=== PATIENT | female | born 1965 | race Caucasian/White ===

== ENCOUNTER 2019-03-01 19:51 | Emergency (ER) | payer OTHER ==
[2019-03-01] MEDS ORDERED: Acetaminophen 325 MG TAB ONE (22:04)
--- NOTE | 2019-03-01 22:26 | RAD ---
Left humerus 2 views HISTORY: Fall. Arm injury. FINDINGS: Humeral shaft is intact. There is little rotation from the first view to the second, so krista t the distal humerus is incompletely evaluated. No displaced fractures are apparent. IMPRESSION: No acute osseous abnormalities are demonstrated.
--- NOTE | 2019-03-01 22:27 | RAD ---
Left elbow 4 views HISTORY: Elbow injury. FINDINGS: Radiocapitellar alignment is maintained. No acute fracture or dislocation are apparent. Lat eral view is rotated, so that evaluation of the distal humeral fat pads is not possible. IMPRESSION: No acute osseous abnormalities are demonstrated.
--- NOTE | 2019-03-01 22:28 | RAD ---
Chest one view HISTORY: Fall. Chest injury. FINDINGS: Cardiac silhouette is magnified by projection. Pulmonary vasculature is unremarkable. Media stinum is midline with aortic calcification. Linear atelectasis over the left lateral lung base. No lobar consolidation or evidence of pneumothorax. pvc monitor leads overlie the chest. IMPRESSION: Atherosclerosis. No active cardiopulmonary abnormalities are otherwise demonstrated.
--- NOTE | 2019-03-01 22:29 | RAD ---
Left shoulder 3 views HISTORY: Fall. Shoulder injury. FINDINGS: Acromioclavicular and glenohumeral alignment are maintained. Chronic appearing remodeling o f the distal clavicle. No acute fracture, dislocation, or aggressive osseous erosions. IMPRESSION: No acute osseous abnormalities are demonstrated.
== END 2019-03-02 | disposition home or self-care (01) ==
LOC: ERS 19:51 → EDBD 19:51 → ERS 03-02
DX: M25.512 Pain in left shoulder (principal); M54.2 Cervicalgia; M25.531 Pain in right wrist; F17.210 Nicotine dependence, cigarettes, uncomplicated; W18.2XXA Fall in (into) shower or empty bathtub, initial encounter
CPT/HCPCS: 71045; 93005

== ENCOUNTER 2019-04-05 10:50 | Inpatient (IN) | payer OTHER ==
--- NOTE | 2019-04-05 11:36 | CT ---
CT BRAIN WITHOUT CONTRAST: Date: 04/05/19 HISTORY: 53-year-old female with left-sided deficit and facial droop, obtundation. FINDINGS: There are no previous exams for comparison. There is encephalomalacia due to a large old right MCA infarction. The ventricular size is appropriat e and the basilar cisterns are patent. No evidence of acute infarct, hemorrhage, midline shift, or abnormal extra-axial fluid collections ar e seen. The bony calvarium is intact. The visualized paranasal sinuses are well aerated. IMPRESSION: 1. No CT evidence of acute intracranial process. 2. 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 Discussed over the telephone with ER physician, Dr. Marciano Chiu, at 1108 hours. CODE CR. POS: YVETTE
[2019-04-05 11:40] LABS: #Basophils 0.1 thou/uL (0.0-0.2); #Eosinphils 0.2 thou/uL (0.0-0.7); #Lymphocytes 2.8 thou/uL (1.20-3.40); #Monocytes 0.3 thou/uL (0.11-0.59); #Neutrophils 3.3 thou/uL (1.40-6.50); %Basophils 0.9 % (0.0-1.0); %Eosinophils 2.3 % (0.0-10.0); %Lymphocytes 41.8 % (21.0-51.0); %Monocytes 4.9 % (0.0-10.0); %Neutrophils 50.1 % (42.0-75.0); Hemoglobin 13.9 g/dL (12.0-16.0); Mean Corpuscular HGB CONC 33.3 g/dL (32.0-36.0); Mean Corpuscular Hemoglobin 31.7 pg (27.0-31.0); Mean Corpuscular Volume 95.1 fL (78.0-98.0); Mean Platelet Volume 7.8 fL (7.4-10.4); Platelet Count 230 thou/uL (130-400); RBC Distribution Width 11.8 % (11.5-14.5); White Blood Cell (WBC) Count 6.6 thou/uL (4.8-10.8)
[2019-04-05 11:42] LABS: INR-International Normal Ratio 0.8; PTT 28.5 SEC (22.9-36.1); Prothrombin Time 11.5 SEC (12.0-14.7)
[2019-04-05 12:03] LABS: ALT (SGPT) 12 U/L (8-55); AST (SGOT) 18 U/L (5-34); Albumin 4.2 g/dL (3.5-5.0); Alkaline Phosphatase 136 U/L (40-110); Anion Gap 15 mmol/L (10-20); BUN (Urea Nitrogen) 11 mg/dL (9.8-20.1); Bilirubin, Total 0.2 mg/dL (0.2-1.2); CK (CPK) 82 U/L (29-168); Calc. Creatinine Clearance 0 mL/min (70-130); Calcium 9.2 mg/dL (7.8-10.44); Carbon Dioxide 25 mmol/L (22-29); Chloride 107 mmol/L (98-107); Estimated GFR-MDRD 83; Globulin 3.6 g/dL (2.4-3.5); Glucose 105 mg/dL (70-105); Protein, Total 7.8 g/dL (6.0-8.3); Sodium 142 mmol/L (136-145)
--- NOTE | 2019-04-05 12:06 | CT ---
CTA HEAD WITH AND WITHOUT CONTRAST UTILIZING 3D REFORMATTED IMAGING: CTA NECK WITH AND WITHOUT CONTRAST UTILIZING 3D REFORMATTED IMAGING: INDICATIONS: Stroke alert. COMPARISON: Noncontrast CT brain dated 04/05/2019. FINDINGS: There is motion artifact that limits image detail on the exam. There is a large area of encephalomalacia involving the right MCA distribution. No abnormal region of enhancement is demonstrated. There is a slight atretic appearance of the intracranial right ICA as well as the right MCA. No hemod ynamically significant stenosis is evident. The right vertebral artery is occluded at the level of th e right C1-2 with some minimal reconstitution of the distal cervical right vertebral artery and intra cranial right vertebral artery. The left vertebral artery is largely dominant. The right common carotid artery origin is patent. There is moderate stenosis involving the right subc lavian artery on image 78 of series 2. The right vertebral artery appears diminutive from its origin. There is complete occlusion at the level of C1-C2. The right common carotid artery origin is patent. There is severe narrowing involving the origin of t he right ICA with a diminutive appearance of the right ICA through its remaining cervical course. There is high grade stenosis involving the origin of the left vertebral artery. The left subclavian a rtery demonstrates some mild atherosclerotic plaque distally, near the origin of the left vertebral a rtery. The left common carotid artery is patent from its origin, throughout its course. The left internal ca rotid artery demonstrates severe atherosclerotic narrowing near its origin. The remaining cervical co urse is patent. The visualized aerodigestive tract appears within normal limits. The thyroid, submandibular and parot id glands appear within normal limits. The lung apices are clear. No definite acute osseous abnormali ty is evident. There is scattered degenerative and osteoarthritic change. IMPRESSION: 1. High grade stenosis involving the origin of both internal carotid arteries as well as the origin o f the left vertebral artery. 2. 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 The right vertebral artery, however, has a diminutive appearance along its entire course. 3. Moderate right subclavian artery stenosis. 4. Remote right middle cerebral artery distribution infarct. Findings were called to Dr. Chiu at 11:50 a.m. on 04/05/2019. CODE CR POS: YVETTE
[2019-04-05 12:41] LABS: Bilirubin Negative (Negative); Blood, Urine Negative (Negative); Clarity Clear (Clear); Glucose, Urine (Dipstick) Normal (Negative); Leukocyte Negative Leu/uL (Negative); Nitrite Negative (Negative); Protein, Urine (Dipstick) Negative (Neg-Trace); Urobilinogen Normal mg/dL (Less than 2)
[2019-04-05] MEDS ORDERED: Aspirin 300 MG Suppository ONE (12:44)
[2019-04-05] MEDS ORDERED: Acetaminophen 650 MG Suppository PR PRN (13:03)
[2019-04-05] MEDS ORDERED: Ondansetron PF 4 MG/2 ML Vial IVP PRN (13:03)
[2019-04-05] MEDS ORDERED: Naloxone HCl 0.4 mg/ml Vial ONE (13:44)
--- NOTE | 2019-04-05 13:45 | RAD ---
XR Chest 1 View Portable HISTORY: Encephalopathy COMPARISON: 03/01/2019 FINDINGS: The heart size is normal. The lungs are well expanded without focal areas of consolidation, pneumothorax or pleural effusions. IMPRESSION: No radiographic evidence of acute cardiopulmonary process.
--- NOTE | 2019-04-05 14:08 | HP ---
PRIMARY CARE PROVIDER: Primary care doctor is in [place]. HISTORY OF PRESENT ILLNESS: History is obtained through sister and son. Apparently, the patient with a history of an old CVA and a left spastic hemiplegia. She was okay this morning, up and about. She went to the bedroom to lie down. She was found with garbled speech, could not stand. Body was stiff. No tonic-clonic activity was seen. No history was available. The patient is currently quiet, nonresponsive. PAST MEDICAL HISTORY: CVA 8 years ago, right middle cerebral artery with a left hemiplegia. There is a question of multiple sclerosis. It stated she has reflex sympathetic dystrophy in her right leg. CURRENT MEDICATIONS: Only names were given; 1. Soma. 2. Xanax. 3. OxyContin. 4. Phenergan. 5. Tylenol with codeine. 6. Amitriptyline. ALLERGIES: SULFA, PENICILLIN, PRILOSEC. PAST SURGICAL HISTORY: Hysterectomy with bilateral salpingo-oophorectomy, right ACL repair. FAMILY HISTORY: No inheritable diseases. No history of seizure disorder or strokes. SOCIAL STATUS: . At the present time, son is a responsible democrat, states full code status. His name is Anne Reaves IV. She smokes 2 packs per day. Drinks occasional alcohol. REVIEW OF SYSTEMS: Totally unobtainable due to her mental status and family statement, she was doing fine prior to present illness. PHYSICAL EXAMINATION: VITAL SIGNS: She was hypertensive to 174/119 with a pulse of 119, respiratory rate of 19 when she came in. Currently, she is 111/68, pulse 67, respirations 20, sat 98% on room air. HEAD, EYES, EARS, NOSE, AND THROAT: Reveal pupils are equal and round. Negative doll's eyes. Sclerae are white. Extraocular movements not measurable due to mental status. Tympanic membranes clear. Nose is clear. Oral mucous membranes are dry. No oral lesions noted. NECK: Supple without jugular venous distention. No adenopathy or thyromegaly. CHEST: Clear to auscultation and percussion, somewhat distant. HEART: Regular rate and rhythm. First and second second heart sounds are clear. There are no murmurs or gallops. ABDOMEN: Soft. Bowel sounds are normal. There is no hepatosplenomegaly. No mass. No rebound. EXTREMITIES: Legs reveal no cyanosis, clubbing, or edema. Left arm is contracted and mildly edematous. Pulses; carotid, radial, femoral, and dorsalis pedis pulses intact and symmetric. SKIN: Warm and dry without bruises or rash. HEME/LYMPH: No tender or swollen lymph nodes in axilla, inguinal, cervical area. NEUROLOGICAL: Facies symmetric. Pupils reactive. Right toe neutral. Left toe upgoing. Deep tendon reflexes minimal. Contracted right arm. Contracted left arm. DIAGNOSTIC DATA: CT scan of brain reveals a large temporoparietal old stroke on the right side, reviewed by me personally. EKG, regular sinus rhythm, no acute abnormality reviewed by me personally. LABORATORY DATA: CBC unremarkable. INR 0.8. Comprehensive metabolic unremarkable except for an alkaline phosphatase of 136. Urine is pending. ADMITTING DIAGNOSES: 1. Encephalopathy. 2. Possible acute cerebrovascular accident. 3. Postictal state of seizure disorder. 4. Left spastic hemiplegia. 5. Questionable diagnosis of multiple sclerosis. 6. Tobacco abuse. 7. Multiple prescription psychotropic medicines. PLAN: 1. Admit to stroke. 2. Stat prolactin has been ordered. Aspirin has been given rectally. The patient will be monitored carefully. We will make further recommendations about possible seizure activity once prolactin level is available. Job ID: [id number]
[2019-04-05 15:37] VITALS: BMI 27.6
[2019-04-05] MEDS ORDERED: Sucralfate 1 GM TAB PO PRN (17:04)
[2019-04-05] MEDS: Sodium Chloride 0.9% 1,000 ML IV SCH ×2 (17:49→23:26)
--- NOTE | 2019-04-05 18:01 | MRI ---
MRI OF THE BRAIN WITHOUT CONTRAST: 04/05/19 HISTORY: Left sided deficit and facial droop, altered mental status. FINDINGS: Correlation is made with the CT from earlier today. No restricted diffusion is seen. Old large right MCA infarction is present. No acute infarct, hemorrh age, midline shift or abnormal extra-axial fluid collections are seen. The ventricular size is approp riate and the basilar cisterns patent. IMPRESSION: No evidence of acute intracranial process. POS: ELIZABETHA
[2019-04-05] MEDS ORDERED: Famotidine/PF 20 mg/2ml Vial SLOW IVP SCH (21:00)
--- NOTE | 2019-04-05 21:07 | CON ---
DATE OF CONSULTATION: 04/05/2019 CONSULTING PHYSICIAN: Hospitalist Service. IMPRESSION: 1. Probable left hemispheric stroke of questionable size, resulting in some secondary dysarthria and mild right-sided weakness. 2. Prior right middle cerebral artery stroke with residual left hemiparesis. 3. Tobacco abuse. PLAN: 1. Continue aspirin and a statin. 2. Cardiovascular surgery consultation about the carotid artery stenosis. 3. Swallow evaluation. HISTORY OF PRESENT ILLNESS: Ms. Mcneil is a 53-year-old white female with a history of a prior stroke around 10 years ago. She was living at home with some assistance of family. She is reasonably independent in her daily life. Her son reports she continued to smoke and has not been on any medications for stroke prevention. She apparently collapsed and had a stiffening spell that lasted around 30 minutes. After this was over, she is significantly more dysarthric than her baseline. She is normal, able to use the right side normally in a normal fashion and has not been back to baseline throughout this day. PAST MEDICAL HISTORY: Stroke. FAMILY HISTORY: Noncontributory. ALLERGIES: PENICILLIN. SOCIAL HISTORY: Positive tobacco use. REVIEW OF SYSTEMS: Ten-system review of systems is otherwise negative. PHYSICAL EXAMINATION: GENERAL: She is a somewhat ill-appearing middle-aged woman who appears older than her stated age. HEENT: Pupils are equal. Conjunctivae are clear. Oropharynx is clear. NECK: No lymphadenopathy. EXTREMITIES: No cyanosis or edema. NEUROLOGIC: She was awake and cooperative. Her speech was quite dysarthric. She was able to repeat name. She followed commands reasonably well. She had some clumsiness of the right hand, but had antigravity strength in it. 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 Gait was not tested. No abnormal movements were seen. IMAGING STUDIES: CT angiogram reportedly shows high-grade stenosis in the left vertebral and both internal carotid arteries. The right vertebral is 100% occluded. CT of the brain showed an old area of encephalomalacia involving the right MCA territory. EKG showed a normal sinus rhythm. LABORATORY DATA: Her lab work was unremarkable. SUMMARY: This is a middle-aged woman with new stroke and possibly a secondary seizure secondary to the acute ischemic event. I would not start anticonvulsants at this point, and I agree with further evaluation and treatment plan as to her significant vascular disease. Job ID: [id number]
[2019-04-05] MEDS: Cyclobenzaprine 10 MG TAB PO SCH (23:21)
[2019-04-06 05:17] LABS: Anion Gap 14 mmol/L (10-20); BUN (Urea Nitrogen) 13 mg/dL (9.8-20.1); Calc. Creatinine Clearance 109 mL/min (70-130); Calcium 8.1 mg/dL (7.8-10.44); Carbon Dioxide 21 mmol/L (22-29); Cardiac Risk 6.7 (Less than 4.5); Chloride 109 mmol/L (98-107); Cholesterol 236 mg/dl (< 200 Desired); Estimated GFR-MDRD 81; Glucose 109 mg/dL (70-105); HDL Cholesterol 35 mg/dL (>60 Neg Risk); LDL Cholesterol, Calculated 155 mg/dL; Potassium 3.6 mmol/L (3.5-5.1); Sodium 140 mmol/L (136-145); Triglycerides 232 mg/dL (Less than 150)
[2019-04-06 06:12] LABS: #Eosinphils 0.1 thou/uL (0.0-0.7); #Lymphocytes 2.5 thou/uL (1.20-3.40); #Monocytes 0.4 thou/uL (0.11-0.59); #Neutrophils 3.2 thou/uL (1.40-6.50); %Basophils 0.3 % (0.0-1.0); %Eosinophils 1.8 % (0.0-10.0); %Lymphocytes 40.7 % (21.0-51.0); %Monocytes 6.1 % (0.0-10.0); %Neutrophils 51.1 % (42.0-75.0); Hemoglobin 12.8 g/dL (12.0-16.0); Mean Corpuscular HGB CONC 33.6 g/dL (32.0-36.0); Mean Corpuscular Volume 95.2 fL (78.0-98.0); Mean Platelet Volume 9.5 fL (7.4-10.4); Platelet Count 53 thou/uL (130-400); Platelet Morphology Comment Appears Decreased; Red Blood Cell (RBC) Count 4.01 mill/uL (4.20-5.40); White Blood Cell (WBC) Count 6.2 thou/uL (4.8-10.8)
[2019-04-06] MEDS ORDERED: Artificial Tears 18 DROP/0.9 ML EA EYE PRN (07:28)
[2019-04-06] MEDS ORDERED: Loperamide HCl 2 MG CAP PO PRN (07:28)
[2019-04-06] MEDS ORDERED: Bisacodyl 10 MG SUPP PR PRN (07:28)
[2019-04-06] MEDS ORDERED: Senokot S 8.6-50 MG TAB PO PRN (07:28)
[2019-04-06] MEDS ORDERED: Sodium Chloride 0.65% Nasal 44 ML BOT EA NARE PRN (07:28)
[2019-04-06] MEDS ORDERED: hydrALAZINE 20 MG/ML VIAL SLOW IVP PRN (07:28)
[2019-04-06] MEDS ORDERED: Diabetic Tussin 200 MG/10 ML UDCUP PO PRN (07:28)
[2019-04-06] MEDS ORDERED: diphenhydrAMINE 50 MG/ML VIAL IVP PRN (07:28)
[2019-04-06] MEDS: Morphine 2 MG/ML SYRINGE SLOW IVP PRN (07:43)
[2019-04-06] MEDS ORDERED: Enoxaparin Sodium 40 MG/0.4 ML SYRINGE SC SCH (09:00)
[2019-04-06] MEDS ORDERED: Famotidine/PF 20 mg/2ml Vial SLOW IVP SCH (09:00)
[2019-04-06] MEDS ORDERED: FLU VACC QS2019-20(6MOS UP)/PF 60 MCG/0.5 ML SYRINGE IM ONE (09:00)
[2019-04-06] MEDS ORDERED: Aspirin 300 MG Suppository PR SCH (09:00)
[2019-04-06] MEDS: Cyclobenzaprine 10 MG TAB PO SCH (11:26)
--- NOTE | 2019-04-06 11:28 | ULT ---
STANDARD CAROTID DOPPLER ULTRASOUND: HISTORY: Dysarthria. COMPARISON: None. TECHNIQUE: Real-time ko-scale color Doppler and spectral analysis of the extracranial carotid and vertebral ar teries was performed. FINDINGS: Moderate atherosclerotic plaque of both carotid bulbs and proximal internal carotid arteries. Antegra de flow to both vertebral arteries. No elevated peak systolic velocity within the right internal pérez tid artery. Abnormally elevated peak systolic velocity within the left internal carotid artery, up to 329 cm per second. IMPRESSION: High grade hemodynamically significant stenosis left internal carotid artery. Stenosis is greater krista n 70%. POS: NEELA
--- NOTE | 2019-04-06 11:30 | PDOC.HOSPP ---
- Subjective Encounter Date: 04/06/19 Encounter Time: 07:15 Subjective: Patient seen and examined. No new complaints. No overnight events - Objective Vital Signs & Weight: Vital Signs (12 hours) Temp Pulse Pulse Pulse Resp BP BP 04/06/19 09:40 77 04/06/19 08:22 79 87 197/93 H 214/100 H 04/06/19 07:50 04/06/19 07:00 97.6 F 92 16 04/06/19 03:01 97.9 F 70 16 BP Pulse Ox 04/06/19 09:40 164/74 H 04/06/19 08:22 04/06/19 07:50 99 04/06/19 07:00 187/86 H 99 04/06/19 03:01 131/70 97 Weight Weight 171 lb 8 oz Result Diagrams: 04/06/19 04:46 04/06/19 04:46 Additional Labs: Accuchecks 04/05/19 12:38 POC Glucose 79 Radiology Reviewed by me: Yes EKG Reviewed by me: Yes Hospitalist ROS - Review of Systems ENT: denies: ear pain, ear discharge, nose pain, nose discharge, nose congestion , mouth pain, mouth swelling, throat pain, throat swelling, other Respiratory: denies: cough, dry, shortness of breath, hemoptysis, SOB with excertion, pleuritic pain, sputum, wheezing, other Cardiovascular: denies: chest pain, palpitations, orthopnea, paroxysmal noc. dyspnea, edema, light headedness, other Gastrointestinal: denies: nausea, vomiting, abdominal pain, diarrhea, constipation, melena, hematochezia, other Genitourinary: denies: dysuria, frequency, incontinence, hematuria, retention, other Musculoskeletal: denies: neck pain, shoulder pain, arm pain, back pain, hand pain, leg pain, foot pain, other - Medication Medications: Active Medications Generic Name Dose Route Start Last Admin Trade Name Freq PRN Reason Stop Dose Admin Amitriptyline HCl 75 mg 04/05/19 21:00 04/06/19 11:25 Elavil PO 75 mg QID RAMYA Administration Aspirin 300 mg 04/06/19 09:00 04/06/19 08:46 Aspirin AR Not Given DAILY RAMYA Cyclobenzaprine HCl 10 mg 04/05/19 21:00 04/06/19 11:26 Flexeril PO Not Given TID [facility] Sodium Chloride 1,000 mls @ 100 mls/hr 04/05/19 13:15 04/05/19 23:26 Normal Saline 0.9% IV Not Given .Q10H RAMYA Morphine Sulfate 2 mg 04/06/19 07:28 04/06/19 07:43 Morphine SLOW IVP 2 mg Q4H PRN Administration Moderate to Severe Pain (6-10) - Exam General Appearance: NAD, awake alert Eye: PERRL, anicteric sclera ENT: normocephalic atraumatic, no oropharyngeal lesions Neck: supple, symmetric, no JVD, no thyromegaly Heart: RRR, no murmur, no gallops, no rubs Respiratory: CTAB, no wheezes, no rales Gastrointestinal: soft, non-tender, non-distended, normal bowel sounds Extremities: no cyanosis, no clubbing, no edema Skin: normal turgor, no lesions Neurological - other findings: left side weakness Musculoskeletal: normal tone, normal strength Psychiatric: normal affect, normal behavior Hosp A/P (1) Encephalopathy acute Code(s): G93.40 - ENCEPHALOPATHY, UNSPECIFIED Status: Resolved (2) CVA (cerebral vascular accident) Code(s): I63.9 - CEREBRAL INFARCTION, UNSPECIFIED Status: Acute (3) Thrombocytopenia Code(s): D69.6 - THROMBOCYTOPENIA, UNSPECIFIED Status: Acute (4) H/O: CVA (cerebrovascular accident) Code(s): Z86.73 - PRSNL HX OF TIA (TIA), AND CEREB INFRC W/O RESID DEFICITS Status: Chronic (5) Hypertension Code(s): I10 - ESSENTIAL (PRIMARY) HYPERTENSION Status: Chronic Qualifiers: Hypertension type: essential hypertension Qualified Code(s): I10 - Essential (primary) hypertension (6) Dyslipidemia Code(s): E78.5 - HYPERLIPIDEMIA, UNSPECIFIED Status: Chronic (7) Carotid stenosis Code(s): I65.29 - OCCLUSION AND STENOSIS OF UNSPECIFIED CAROTID ARTERY Status : Chronic - Plan old records reviewed/req, PT/OT, social professionals, speech therapy 04/06/19- dc lovenox, sent HIT antibody, stroke team, home medication reconciled , add lipitor, aspirin, change flexeril as needed only, reduce elavil 75 mg daily, discussed with CV surgery
[2019-04-06] MEDS ORDERED: Cyclobenzaprine 10 MG TAB PO PRN (11:35)
[2019-04-06] MEDS ORDERED: Acetaminophen 325 MG TAB PO PRN (11:35)
[2019-04-06] MEDS ORDERED: Amlodipine 10 MG TAB PO SCH (11:45)
[2019-04-06] MEDS: Sodium Chloride 0.9% 1,000 ML IV SCH (12:17)
--- NOTE | 2019-04-06 15:10 | CON ---
DATE OF CONSULTATION: HISTORY OF PRESENT ILLNESS: This is a 53-year-old, who had a previous right hemispheric CVA, leaving her with left-sided hemiplegia, who was found unresponsive at home and brought into the hospital. Workup included a CTA showing bilateral high-grade internal carotid artery lesions with an MRI showing no new left hemispheric CVA, but with the old right hemispheric CVA. Question of whether she may have had a seizure is present. The patient states that when she had her stroke 11 years ago she was told she had diabetes. She developed RSD in her left leg following a meniscus repair in the past, but otherwise has avoided medical care. She had a bleeding ulcer about 2 years ago, and states that she does take some medication for that, but is unsure of the name. She also takes Elavil and occasional Xanax. SOCIAL HISTORY: She smokes at least a pack of cigarettes a day. She lives with her and son in [place], [place], and was visiting family in [place] when this occurred. She has been placed on aspirin and Lovenox. ALLERGIES: SHE REPORTS ALLERGIES TO SULFA, PENICILLIN, AND PRILOSEC. SURGICAL HISTORY: Includes the meniscus repair as well as previous hysterectomy. PHYSICAL EXAMINATION: GENERAL: On examination, she is alert, cooperative lady with left hemiplegia, but is able to stand and use her right side to carry daily living activities. NECK: Bilateral carotid bruits with the left being louder than the right. CARDIAC: Regular rate and rhythm. No murmurs. ABDOMEN: Soft and nontender. EXTREMITIES: She has no peripheral edema and palpable posterior tibial pulses bilaterally. LABORATORY DATA: Her laboratory values are notable for a platelet count of 53,000 today, compared to 230,000 yesterday, and I have stopped her Lovenox. She has normal renal function and her blood sugars are not elevated. Troponin was normal on admission. Her cholesterol is elevated at 236. ASSESSMENT AND PLAN: The patient might benefit from a sequential left and then right carotid endarterectomies; however, at this time, she is fairly adamant that surgical intervention is not in her future. I have gone over the procedure risks, complications, and expectations with her. Further workup is in progress including a cardiac echo. At this time, attempts at medical management with aspirin, statin, smoking cessation. If she decides to pursue surgical intervention, then this can be undertaken with the left carotid endarterectomy, probably being the initial treatment. Job ID: [id number]
[2019-04-06] MEDS: Atorvastatin Calcium 40 MG TAB PO SCH (21:04)
[2019-04-07 07:26] LABS: #Eosinphils 0.1 thou/uL (0.0-0.7); #Lymphocytes 1.5 thou/uL (1.20-3.40); #Monocytes 0.3 thou/uL (0.11-0.59); #Neutrophils 5.2 thou/uL (1.40-6.50); %Basophils 0.7 % (0.0-1.0); %Eosinophils 1.6 % (0.0-10.0); %Lymphocytes 20.7 % (21.0-51.0); %Monocytes 4.4 % (0.0-10.0); %Neutrophils 72.7 % (42.0-75.0); Hemoglobin 14.8 g/dL (12.0-16.0); Mean Corpuscular HGB CONC 34.4 g/dL (32.0-36.0); Mean Corpuscular Hemoglobin 32.7 pg (27.0-31.0); Mean Corpuscular Volume 95.1 fL (78.0-98.0); Mean Platelet Volume 6.7 fL (7.4-10.4); Platelet Count 221 thou/uL (130-400); RBC Distribution Width 11.8 % (11.5-14.5); Red Blood Cell (RBC) Count 4.52 mill/uL (4.20-5.40); White Blood Cell (WBC) Count 7.1 thou/uL (4.8-10.8)
[2019-04-07] MEDS: Amlodipine 10 MG TAB PO SCH (08:52)
[2019-04-07] MEDS: Aspirin 325 MG TAB PO SCH (08:52)
[2019-04-07] MEDS: ALPRAZolam 1 MG TAB PO PRN ×2 (10:41→21:13)
--- NOTE | 2019-04-07 10:54 | PDOC.HOSPP ---
- Subjective Encounter Date: 04/07/19 Encounter Time: 07:15 Subjective: Patient seen and examined. No new complaints. No overnight events - Objective Vital Signs & Weight: Vital Signs (12 hours) Temp Pulse Resp BP BP BP Pulse Ox 04/07/19 08:52 71 139/73 04/07/19 07:18 98.3 F 71 17 134/72 98 04/07/19 03:08 97.7 F 63 16 129/81 99 04/06/19 23:47 168/93 H 04/06/19 23:27 98.5 F 76 16 193/93 H 100 Weight Weight 171 lb 8 oz I&O: 04/06/19 04/07/19 04/08/19 06:59 06:59 06:59 Intake Total 710 Balance 710 Result Diagrams: 04/07/19 07:07 04/06/19 04:46 Radiology Reviewed by me: Yes EKG Reviewed by me: Yes Hospitalist ROS - Review of Systems ENT: denies: ear pain, ear discharge, nose pain, nose discharge, nose congestion , mouth pain, mouth swelling, throat pain, throat swelling, other Respiratory: denies: cough, dry, shortness of breath, hemoptysis, SOB with excertion, pleuritic pain, sputum, wheezing, other Cardiovascular: denies: chest pain, palpitations, orthopnea, paroxysmal noc. dyspnea, edema, light headedness, other Gastrointestinal: denies: nausea, vomiting, abdominal pain, diarrhea, constipation, melena, hematochezia, other Genitourinary: denies: dysuria, frequency, incontinence, hematuria, retention, other - Medication Medications: Active Medications Generic Name Dose Route Start Last Admin Trade Name Freq PRN Reason Stop Dose Admin Alprazolam 2 mg 04/05/19 17:09 04/07/19 10:41 Xanax PO 2 mg QIDPRN PRN Administration Anxiety Amitriptyline HCl 75 mg 04/07/19 09:00 04/07/19 08:52 Elavil PO 75 mg DAILY RAMYA Administration Amlodipine Besylate 10 mg 04/07/19 09:00 04/07/19 08:52 Norvasc PO 10 mg DAILY RAMYA Administration Aspirin 325 mg 04/07/19 09:00 04/07/19 08:52 Aspirin PO 325 mg DAILY RAMYA Administration Atorvastatin Calcium 40 mg 04/06/19 21:00 04/06/19 21:04 Lipitor PO 40 mg HS RAMYA Administration Morphine Sulfate 2 mg 04/06/19 07:28 04/06/19 07:43 Morphine SLOW IVP 2 mg Q4H PRN Administration Moderate to Severe Pain (6-10) Sodium Chloride 10 ml 04/05/19 13:03 04/07/19 08:56 Flush - Normal Saline IVF 10 ml PRN PRN Administration Saline Flush - Exam General Appearance: NAD, awake alert Eye: PERRL, anicteric sclera ENT: normocephalic atraumatic, no oropharyngeal lesions Neck: supple, symmetric, no JVD Heart: RRR, no murmur, no gallops Respiratory: CTAB, no wheezes, no rales Gastrointestinal: soft, non-tender, non-distended Extremities: no cyanosis, no clubbing Skin: normal turgor, no lesions Neurological: no focal deficits Musculoskeletal: normal tone, normal strength Psychiatric: normal affect, normal behavior Hosp A/P (1) Encephalopathy acute Code(s): G93.40 - ENCEPHALOPATHY, UNSPECIFIED Status: Resolved (2) CVA (cerebral vascular accident) Code(s): I63.9 - CEREBRAL INFARCTION, UNSPECIFIED Status: Acute (3) Thrombocytopenia Code(s): D69.6 - THROMBOCYTOPENIA, UNSPECIFIED Status: Acute (4) H/O: CVA (cerebrovascular accident) Code(s): Z86.73 - PRSNL HX OF TIA (TIA), AND CEREB INFRC W/O RESID DEFICITS Status: Chronic (5) Hypertension Code(s): I10 - ESSENTIAL (PRIMARY) HYPERTENSION Status: Chronic Qualifiers: Hypertension type: essential hypertension Qualified Code(s): I10 - Essential (primary) hypertension (6) Dyslipidemia Code(s): E78.5 - HYPERLIPIDEMIA, UNSPECIFIED Status: Chronic (7) Carotid stenosis Code(s): I65.29 - OCCLUSION AND STENOSIS OF UNSPECIFIED CAROTID ARTERY Status : Chronic - Plan old records reviewed/req, plan discussed w/ family 04/06/19- dc lovenox, sent HIT antibody, stroke team, home medication reconciled , add lipitor, aspirin, change flexeril as needed only, reduce elavil 75 mg daily, discussed with CV surgery 04/07/19; pt agreed with CEA, will notify CV surgery, platelet count yesterday seems like false result, today normal
[2019-04-07] MEDS: Morphine 2 MG/ML SYRINGE SLOW IVP PRN (12:22)
[2019-04-07] MEDS: Atorvastatin Calcium 40 MG TAB PO SCH (21:13)
[2019-04-08] MEDS: ALPRAZolam 1 MG TAB PO PRN ×3 (04:47→21:44)
[2019-04-08] MEDS ORDERED: Protamine Sulfate 50 MG/5 ML VIAL ONE (07:17)
[2019-04-08] MEDS ORDERED: Heparin 5,000 UNITS/ML VIAL ONE (07:17)
[2019-04-08] MEDS: Amlodipine 10 MG TAB PO SCH (07:18)
[2019-04-08] MEDS ORDERED: hydrALAZINE 20 MG/ML VIAL ONE (07:31)
[2019-04-08] MEDS ORDERED: Fentanyl 250 MCG/5 ML VIAL ONE (07:31)
[2019-04-08] MEDS ORDERED: niCARdipine 25 MG/10 ML VIAL ONE (07:31)
[2019-04-08] MEDS ORDERED: Phenylephrine HCL 10 MG/ML VIAL ONE (07:31)
[2019-04-08] MEDS ORDERED: Clindamycin/D5W 900 mg/50 ml Premix Bag ONE (07:43)
[2019-04-08] MEDS ORDERED: Levofloxacin 500 mg/D5W 100 ml Premix Bag ONE (07:43)
[2019-04-08] MEDS: Aspirin 325 MG TAB PO SCH (07:59)
[2019-04-08] MEDS ORDERED: Nitroglycerin 50 MG/250 ML BOT 250 ML ONE (08:04)
[2019-04-08] MEDS ORDERED: SUGAMMADEX SODIUM 200 MG/2 ML VIAL ONE (08:53)
[2019-04-08] MEDS ORDERED: Dexamethasone 20 MG/5 ML VIAL ONE (09:14)
[2019-04-08] MEDS ORDERED: Rocuronium Bromide 10 MG/ML (10ML VIAL) ONE (09:14)
[2019-04-08] MEDS ORDERED: Lidocaine 1% PF 5 ML VIAL ONE (09:14)
[2019-04-08] MEDS ORDERED: Ondansetron PF 4 MG/2 ML Vial ONE (09:14)
[2019-04-08] MEDS ORDERED: PROPOFOL 200 MG/20 ML VIAL ONE (09:14)
[2019-04-08] MEDS ORDERED: Glycopyrrolate 0.2 MG/ML 5 ML SYRINGE ONE (09:14)
[2019-04-08] MEDS ORDERED: Bupivacaine PF 0.5% 30 ML VIAL ONE (09:43)
[2019-04-08] MEDS ORDERED: Lidocaine 2% w/Epinephrine 1:200K 20 ML VIAL ONE (09:43)
[2019-04-08] MEDS ORDERED: Ondansetron HCl/PF 4 MG/2 ML Vial IVP PRN (09:53)
[2019-04-08] MEDS ORDERED: Promethazine HCl 25 MG/ML VIAL SLOW IVP PRN (09:53)
[2019-04-08] MEDS ORDERED: HYDROmorphone 2 MG/ML VIAL SLOW IVP PRN (09:53)
[2019-04-08] MEDS ORDERED: Promethazine HCl 25 MG/ML VIAL IM PRN ×2 (09:53→10:17)
[2019-04-08] MEDS ORDERED: PACU-Morphine 4MG/ML VIAL SLOW IVP PRN (09:53)
--- NOTE | 2019-04-08 10:15 | PDOC.HOSPP ---
- Subjective Encounter Date: 04/08/19 Encounter Time: 07:10 Subjective: Patient seen and examined. No new complaints. No overnight events - Objective Vital Signs & Weight: Vital Signs (12 hours) Temp Pulse Resp BP BP Pulse Ox 04/08/19 07:18 73 121/69 04/08/19 03:30 98.7 F 56 L 16 124/69 99 04/08/19 00:00 98.7 F 56 L 16 148/68 H 99 Weight Weight 171 lb 8 oz I&O: 04/07/19 04/08/19 04/09/19 06:59 06:59 06:59 Intake Total 710 480 Balance 710 480 Result Diagrams: 04/07/19 07:07 04/06/19 04:46 EKG Reviewed by me: Yes Hospitalist ROS - Review of Systems ENT: denies: ear pain, ear discharge, nose pain, nose discharge, nose congestion , mouth pain, mouth swelling, throat pain, throat swelling, other Respiratory: denies: cough, dry, shortness of breath, hemoptysis, SOB with excertion, pleuritic pain, sputum, wheezing, other Cardiovascular: denies: chest pain, palpitations, orthopnea, paroxysmal noc. dyspnea, edema, light headedness, other Gastrointestinal: denies: nausea, vomiting, abdominal pain, diarrhea, constipation, melena, hematochezia, other Genitourinary: denies: dysuria, frequency, incontinence, hematuria, retention, other Musculoskeletal: denies: neck pain, shoulder pain, arm pain, back pain, hand pain, leg pain, foot pain, other - Medication Medications: Active Medications Generic Name Dose Route Start Last Admin Trade Name Philipq PRN Reason Stop Dose Admin Alprazolam 2 mg 04/05/19 17:09 04/08/19 04:47 Xanax PO 2 mg QIDPRN PRN Administration Anxiety Amitriptyline HCl 75 mg 04/07/19 09:00 04/08/19 07:18 Elavil PO 75 mg DAILY RAMYA Administration Amlodipine Besylate 10 mg 04/07/19 09:00 04/08/19 07:18 Norvasc PO 10 mg DAILY RAMYA Administration Aspirin 325 mg 04/07/19 09:00 04/08/19 07:59 Aspirin PO Not Given DAILY RAMYA Atorvastatin Calcium 40 mg 04/06/19 21:00 04/07/19 21:13 Lipitor PO 40 mg HS RAMYA Administration Morphine Sulfate 2 mg 04/06/19 07:28 04/07/19 12:22 Morphine SLOW IVP 2 mg Q4H PRN Administration Moderate to Severe Pain (6-10) Sodium Chloride 10 ml 04/05/19 13:03 04/07/19 08:56 Flush - Normal Saline IVF 10 ml PRN PRN Administration Saline Flush - Exam General Appearance: NAD, awake alert Eye: PERRL, anicteric sclera ENT: normocephalic atraumatic, no oropharyngeal lesions Neck: supple, symmetric, no JVD Heart: RRR, no murmur, no gallops Respiratory: CTAB, no wheezes, no rales Gastrointestinal: soft, non-tender, non-distended, normal bowel sounds Extremities: no clubbing, no edema Skin: normal turgor, no lesions Neurological - other findings: left side residual weakness Musculoskeletal: normal tone, normal strength Psychiatric: normal affect, normal behavior Hosp A/P (1) Encephalopathy acute Code(s): G93.40 - ENCEPHALOPATHY, UNSPECIFIED Status: Resolved (2) CVA (cerebral vascular accident) Code(s): I63.9 - CEREBRAL INFARCTION, UNSPECIFIED Status: Acute (3) Thrombocytopenia Code(s): D69.6 - THROMBOCYTOPENIA, UNSPECIFIED Status: Acute (4) H/O: CVA (cerebrovascular accident) Code(s): Z86.73 - PRSNL HX OF TIA (TIA), AND CEREB INFRC W/O RESID DEFICITS Status: Chronic (5) Hypertension Code(s): I10 - ESSENTIAL (PRIMARY) HYPERTENSION Status: Chronic Qualifiers: Hypertension type: essential hypertension Qualified Code(s): I10 - Essential (primary) hypertension (6) Dyslipidemia Code(s): E78.5 - HYPERLIPIDEMIA, UNSPECIFIED Status: Chronic (7) Carotid stenosis Code(s): I65.29 - OCCLUSION AND STENOSIS OF UNSPECIFIED CAROTID ARTERY Status : Chronic - Plan old records reviewed/req 04/06/19- dc lovenox, sent HIT antibody, stroke team, home medication reconciled , add lipitor, aspirin, change flexeril as needed only, reduce elavil 75 mg daily, discussed with CV surgery 04/07/19; pt agreed with CEA, will notify CV surgery, platelet count yesterday seems like false result, today normal 04/08/19- today plan for CEA, after surgery pt will be monitored in CCU, medication reviewed and continue to provide symptomatic treatment
[2019-04-08] MEDS ORDERED: Fentanyl 100 MCG/2 ML VIAL SLOW IVP PRN (10:17)
[2019-04-08] MEDS ORDERED: Acetaminophen 325 MG TAB PO PRN (10:17)
[2019-04-08] MEDS ORDERED: Ondansetron PF 4 MG/2 ML Vial IVP PRN (10:17)
[2019-04-08] MEDS: Sodium Chloride 0.9% 1,000 ML IV SCH ×2 (11:49→17:25)
[2019-04-08] MEDS: Clindamycin/D5W 900 MG in Premix Bag 1 BAG IVPB SCH ×2 (13:11→19:35)
[2019-04-08] MEDS: Fentanyl 100 MCG/2 ML VIAL SLOW IVP PRN ×2 (13:37→14:58)
[2019-04-08 14:08] LABS: Heparin-Induced Ab (HITA) 0.149 OD (0.000-0.400)
[2019-04-08] MEDS ORDERED: Morphine 4 MG/ML VIAL SLOW IVP PRN (16:00)
[2019-04-08] MEDS: HYDROcodone/Acetaminophen 5/325 mg Tablet PO PRN (19:33)
[2019-04-08] MEDS: Atorvastatin Calcium 40 MG TAB PO SCH (19:34)
[2019-04-08] MEDS: Morphine 2 MG/ML SYRINGE SLOW IVP PRN (21:43)
[2019-04-09] MEDS: Clindamycin/D5W 900 MG in Premix Bag 1 BAG IVPB SCH ×2 (01:06→09:02)
[2019-04-09] MEDS: HYDROcodone/Acetaminophen 5/325 mg Tablet PO PRN ×2 (01:06→11:46)
[2019-04-09] MEDS: Sodium Chloride 0.9% 1,000 ML IV SCH ×2 (02:26→17:27)
[2019-04-09] MEDS: Aspirin Chewable 81 MG TAB PO SCH (09:02)
--- NOTE | 2019-04-09 09:14 | OP ---
DATE OF PROCEDURE: 04/08/2019 PREOPERATIVE DIAGNOSIS: Bilateral carotid stenosis. PROCEDURE PERFORMED: Left carotid endarterectomy with bovine patch angioplasty. ANESTHESIA: General. ESTIMATED BLOOD LOSS: Minimal. DESCRIPTION OF PROCEDURE: After ultrasound-guided placement of a right common femoral arterial line, the ultrasound was used to identify the carotid bifurcation, which was low in the neck. She was prepped and draped. An incision was made and control of the common internal and external carotid arteries were obtained. Following this, the patient was heparinized. An ACT was checked. Clamps were applied. Arteriotomy performed and there was a tight stenosis web-like in the internal carotid artery. A 12-Beninese shunt was placed and a 10 could have been probably used ideally, but due to the multiple stenosis in her extracranial vessels, it was felt that the larger shunt would be more appropriate. Endarterectomy was then performed with nice tapering distally and a bovine patch was then sewn in place with 6-0 Prolene suture. Shunt was removed prior to completing the suture line. Vessels backflushed and forward flushed and the area irrigated with heparin saline. Flow was then restored up the external and then internal carotid artery and heparin were partially reversed with protamine. After obtaining good hemostasis, 0.5% Marcaine was used to infiltrate the subcutaneous tissues and the wounds were closed in layers. The patient was to be taken to the recovery room in guarded condition. Job ID: [id number]
--- NOTE | 2019-04-09 11:33 | RAD ---
XR Hand Lt 3 View STANDARD HISTORY: Trauma to hand. COMPARISON: None. FINDINGS: The bones are demineralized. There are arthritic changes present. There is a acute fracture through the second metatarsal head and neck region. There is also deformity to the third metatarsal head also probably an acute injury. No other findings. IMPRESSION: Fractures of the head and neck regions of the second and third metatarsals with mild vola r angulation.
--- NOTE | 2019-04-09 11:51 | PDOC.HOSPP ---
- Subjective Encounter Date: 04/09/19 Encounter Time: 09:50 Subjective: Patient seen and examined. No new complaints. No overnight events - Objective Vital Signs & Weight: Vital Signs (12 hours) Temp Pulse Resp Pulse Ox 04/09/19 08:20 71 14 99 04/09/19 08:00 98.2 F 95 04/09/19 05:00 98.5 F 04/09/19 00:00 98.3 F Weight Weight 171 lb 8 oz Most Recent Monitor Data Heart Rate from ECG 93 NIBP 150/73 NIBP BP-Mean 98 Respiration from ECG 21 SpO2 93 I&O: 04/08/19 04/09/19 04/10/19 06:59 06:59 06:59 Intake Total 480 2583 0 Output Total 850 600 Balance 480 1733 -600 Result Diagrams: 04/07/19 07:07 04/06/19 04:46 Hospitalist ROS - Review of Systems ENT: denies: ear pain, ear discharge, nose pain, nose discharge, nose congestion , mouth pain, mouth swelling, throat pain, throat swelling, other Respiratory: denies: cough, dry, shortness of breath, hemoptysis, SOB with excertion, pleuritic pain, sputum, wheezing, other Cardiovascular: denies: chest pain, palpitations, orthopnea, paroxysmal noc. dyspnea, edema, light headedness, other Gastrointestinal: denies: nausea, vomiting, abdominal pain, diarrhea, constipation, melena, hematochezia, other Genitourinary: denies: dysuria, frequency, incontinence, hematuria, retention, other Musculoskeletal: reports: hand pain. denies: neck pain, shoulder pain, arm pain , back pain, leg pain, foot pain, other - Medication Medications: Active Medications Generic Name Dose Route Start Last Admin Trade Name Freq PRN Reason Stop Dose Admin Hydrocodone Bitart/Acetaminophen 1 tab 04/08/19 10:17 04/09/19 11:46 [place] 5/325 PO 1 tab Q4H PRN Administration Mild Pain (1-3) Albuterol/Ipratropium 3 ml 04/08/19 13:00 04/09/19 08:20 Duoneb NEB 3 ml [id number] RAMYA Administration Alprazolam 2 mg 04/05/19 17:09 04/08/19 21:44 Xanax PO 2 mg QIDPRN PRN Administration Anxiety Amitriptyline HCl 75 mg 04/07/19 09:00 04/09/19 09:02 Elavil PO 75 mg DAILY RAMYA Administration Aspirin 81 mg 04/09/19 09:00 04/09/19 09:02 Aspirin Chewable PO 81 mg QAM RAMYA Administration Atorvastatin Calcium 40 mg 04/06/19 21:00 04/08/19 19:34 Lipitor PO 40 mg HS RAMYA Administration Fentanyl 25 mcg 04/08/19 10:17 04/08/19 14:58 Sublimaze SLOW IVP 25 mcg Q4H PRN Administration Moderate Pain (4-6) Sodium Chloride 1,000 mls @ 100 mls/hr 04/08/19 10:17 04/09/19 02:26 Normal Saline 0.9% IV 1,000 mls .Q10H RAMYA Administration Morphine Sulfate 2 mg 04/08/19 15:59 04/08/19 21:43 Morphine SLOW IVP 2 mg Q4H PRN Administration Moderate Breakthrough Pain Morphine Sulfate 4 mg 04/08/19 16:00 04/08/19 17:34 Morphine SLOW IVP 4 mg Q4H PRN Administration Severe Breakthrough Pain - Exam General Appearance: NAD, awake alert Eye: PERRL, anicteric sclera ENT: normocephalic atraumatic, no oropharyngeal lesions Neck: supple, symmetric, no JVD Heart: RRR, no murmur, no gallops Respiratory: CTAB, no wheezes, no rales Gastrointestinal: soft, non-tender, non-distended, normal bowel sounds Extremities: no cyanosis, no clubbing, no edema Skin: normal turgor, no lesions Neurological: hemiplegia Musculoskeletal: normal tone, normal strength Psychiatric: normal affect, normal behavior Hosp A/P (1) Encephalopathy acute Code(s): G93.40 - ENCEPHALOPATHY, UNSPECIFIED Status: Resolved (2) CVA (cerebral vascular accident) Code(s): I63.9 - CEREBRAL INFARCTION, UNSPECIFIED Status: Acute (3) Thrombocytopenia Code(s): D69.6 - THROMBOCYTOPENIA, UNSPECIFIED Status: Acute (4) H/O: CVA (cerebrovascular accident) Code(s): Z86.73 - PRSNL HX OF TIA (TIA), AND CEREB INFRC W/O RESID DEFICITS Status: Chronic (5) Hypertension Code(s): I10 - ESSENTIAL (PRIMARY) HYPERTENSION Status: Chronic Qualifiers: Hypertension type: essential hypertension Qualified Code(s): I10 - Essential (primary) hypertension (6) Dyslipidemia Code(s): E78.5 - HYPERLIPIDEMIA, UNSPECIFIED Status: Chronic (7) Carotid stenosis Code(s): I65.29 - OCCLUSION AND STENOSIS OF UNSPECIFIED CAROTID ARTERY Status : Chronic (8) Hand pain, left Code(s): M79.642 - PAIN IN LEFT HAND Status: Acute - Plan old records reviewed/req 04/06/19- dc lovenox, sent HIT antibody, stroke team, home medication reconciled , add lipitor, aspirin, change flexeril as needed only, reduce elavil 75 mg daily, discussed with CV surgery 04/07/19; pt agreed with CEA, will notify CV surgery, platelet count yesterday seems like false result, today normal 04/08/19- today plan for CEA, after surgery pt will be monitored in CCU, medication reviewed and continue to provide symptomatic treatment 04/09/19- pt has left hand pain and swelling, xray showed fracture, will consult hand surgeon, medication reviewed and continue to provide symptomatic treatment, possible dc soon
[2019-04-09] MEDS: ALPRAZolam 1 MG TAB PO PRN ×2 (13:22→17:34)
[2019-04-09] MEDS: Morphine 2 MG/ML SYRINGE SLOW IVP PRN ×2 (14:02→20:20)
[2019-04-09] MEDS: Cepastat Lozenges 1 LOZ PO PRN ×2 (15:11→17:35)
[2019-04-09] MEDS: Atorvastatin Calcium 40 MG TAB PO SCH (20:21)
--- NOTE | 2019-04-09 23:23 | CON ---
DATE OF CONSULTATION: REQUESTING PHYSICIAN: Dr. Rubina Murry. BRIEF HISTORY OF PRESENT ILLNESS: The patient is a 53-year-old right-hand dominant lady, who was examined in her hospital room in the Intensive Care Unit at [facility] in [place], [place]. She has a history of CVA with left spastic hemiplegia, which occurred 8 years ago. More recently, on the morning of April 05, she began to develop "garbled speech and was not able to stand and upon arrival at [facility] was found to have evidence for a possible acute cerebral vascular accident. The patient was admitted to the hospital and is now status post left carotid endarterectomy. Postoperatively, the patient was complaining of some left hand pain and an x-ray was obtained, which showed evidence of fractures of the index and long finger at the metacarpal neck with minimal angulation. Given this finding, orthopedic consultation requested. PAST MEDICAL HISTORY: Remarkable for history of CVA, possible reflex sympathetic dystrophy of the right lower extremity. PAST SURGICAL HISTORY: Includes hysterectomy with oophorectomy as well as prior right anterior cruciate ligament repair and now most recently the carotid endarterectomy. MEDICATIONS: At the time of admission from her history and physical were: 1. Soma. 2. Xanax. 3. OxyContin. 4. Phenergan. 5. Tylenol with codeine. 6. Amitriptyline. I will refer you to the medication reconciliation form for full medications at the time of this orthopedic exam. ALLERGIES: SULFA AND PENICILLIN. SOCIAL HISTORY: The patient does have a history of cigarettes with 2 packs per day. Drinks occasional alcohol. REVIEW OF SYSTEMS: The patient denies any fevers, chills prior to this admission. Denies shortness of breath or chest pain prior to admission. She does report weakness and this hemiplegia on the left side since her stroke nearly 8 years ago. PHYSICAL EXAMINATION: VITAL SIGNS: The patient has a heart rate of 82, respiratory rate of 20. HEENT: Pupils equal, round and reactive. She does have some mild facial droop consistent with her history of stroke. NECK: Supple. Breathing is unlabored. EXTREMITIES: Remarkable for the left upper extremity. She is found to have a claw hand with somewhat rigid flexion of the interphalangeal joints. The metacarpophalangeal joints are held in extension. She has pain to palpation of the index and long metacarpals at the neck region, although no gross deformity is noted. She has good capillary refill and 2+ radial pulse. IMAGING: Three-view x-ray hand shows index and long metacarpal neck fractures with just slight palmar flexion deformity. ASSESSMENT: The patient with nondisplaced index and long metacarpal neck fractures. PLAN: Today, I applied a volar splint that comes up to and slightly beyond the metacarpophalangeal joint on the palmar aspect of the hand. Given the extensive flexion contracture of her fingers and the somewhat rigid nature of these flexion contractures, a more extensive distal splint really is not feasible, nor do I believe is necessary. I am happy for to continue with this current splinting. I do not feel that any surgical intervention is necessary. I also do not feel that any attempt at hand therapy for attempts at working on range of motion is indicated at this time until the fractures have healed. The patient appears comfortable with our discussion and plan. Job ID: [id number]
[2019-04-10] MEDS: Fentanyl 100 MCG/2 ML VIAL SLOW IVP PRN
[2019-04-10] MEDS: Sodium Chloride 0.9% 1,000 ML IV SCH ×2 (00:49→13:58)
[2019-04-10] MEDS ORDERED: Milk Of Magnesia 30 ML UDCUP PO PRN (01:07)
[2019-04-10] MEDS ORDERED: Milk Of Magnesia 30 ML UDCUP PO SCH (01:15)
[2019-04-10] MEDS: ALPRAZolam 1 MG TAB PO PRN ×3 (01:43→14:27)
[2019-04-10] MEDS: Morphine 2 MG/ML SYRINGE SLOW IVP PRN (05:20)
[2019-04-10] MEDS: Aspirin Chewable 81 MG TAB PO SCH (08:47)
[2019-04-10] MEDS ORDERED: Polyethylene Glycol 3350 17 GM Packet PO SCH (09:00)
--- NOTE | 2019-04-10 10:22 | DIS ---
DATE OF ADMISSION: 04/05/2019 DATE OF DISCHARGE: 04/10/2019 PRIMARY CARE PHYSICIAN: [facility] Call admission. DISCHARGE DISPOSITION: Home with home health. PRIMARY DISCHARGE DIAGNOSES: 1. CVA. 2. Status post left carotid endarterectomy with bovine patch angioplasty. 3. Left hand second and third metatarsal fracture. 4. Acute encephalopathy due to CVA, resolved. SECONDARY DISCHARGE DIAGNOSES: History of right MCA CVA with residual weakness on the left side, hypertension, dyslipidemia. PROCEDURE/OPERATION: Carotid endarterectomy, left side. RADIOLOGICAL INVESTIGATIONS: CT brain was negative for any acute intracranial process, showed old infarct. CT [place] with angiography did not show any blockage other than bilateral carotid stenosis and moderate right subclavian artery stenosis and old right MCA distribution infarct. 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 Carotid Doppler ultrasound showed high-grade stenosis in left internal carotid artery. Echocardiography showed diastolic dysfunction with normal EF. MRI brain showed no acute process, but old infarct. SIGNIFICANT LABORATORY DATA: WBC 7.1, hemoglobin 14.8, platelet 223. INR 0.8. Sodium 140, creatinine 0.75, LDL 155. Cardiac enzyme negative. Urinalysis unremarkable. Heparin-induced thrombocytopenia antibody negative. DISCHARGE MEDICATIONS: 1. Xanax 2 mg p.o. q.i.d. p.r.n. 2. Soma 350 mg p.o. q.i.d. p.r.n. 3. Carafate 1 g p.o. q.i.d. p.r.n. 4. Elavil 75 mg p.o. daily p.r.n. 5. Norvasc 10 mg daily. 6. Aspirin 325 mg p.o. daily. 7. Lipitor 40 mg p.o. at bedtime. CONTRAINDICATION: None. CODE STATUS: Full code. INPATIENT CARTRIDGE FEEDER: 1. Neurology, Dr. Jaron Cyr was consulted while in hospital. 2. Dr. Helms, cardiovascular surgeon was consulted for carotid stenosis. 3. Dr. Flor was consulted for metatarsal fracture. TEST RESULTS PENDING ON DISCHARGE: None. ALLERGIES: PEPCID, OMEPRAZOLE, PENICILLIN, SULFA. DISCHARGE PLAN: Posthospital, the patient will follow up with primary care physician, Dr. Helms as instructed and we have arranged home health on discharge. HOSPITAL COURSE: A 53-year-old female with above-mentioned medical problem, who was admitted by Dr. Murry. Please see his H and P for further details. The patient was admitted for altered mental status and it was consistent with encephalopathy and suspected for CVA. In the emergency room, the patient had full workup for stroke including CT brain, CT angiography, CT [place], and chest x-ray, all test were unremarkable, but it did show old infarct on the right MCA territory. There was also vertebral artery stenosis as well as carotid stenosis and subclavian stenosis. We consulted cardiovascular surgeon and cardiovascular surgeon did left carotid endarterectomy during this admission. The patient was complaining of pain in her left hand and that is why we did x-ray, which showed metatarsal fracture and splint was applied by a hand surgeon. The patient was observed after carotid endarterectomy in ICU, and subsequently, she was transferred to Stroke Floor. Now, the patient is medically stable for discharge. The patient is seen and examined at bedside today. Plan of care discussed with the family and the patient in detail. Today, subjectively, the patient is doing much better. No complaints. PHYSICAL EXAMINATION: Objectively; VITAL SIGNS: Temperature 98.2, pulse 81 respiratory rate 14, saturations 99%, blood pressure 147/80. Weight 171 pounds. GENERAL: The patient is alert and oriented, in no acute distress. HEAD: Normocephalic and atraumatic. NECK: Surgical site is clean and healthy. LUNGS: Clear to auscultation without any rhonchi or rales. CARDIAC: S1 and S2. Regular without any murmur. No gallop. No rub. ABDOMEN: Soft. Bowel sounds are present. Nontender. Nondistended. No organomegaly. No mass. EXTREMITIES: No edema. NEUROLOGIC: The patient does have residual weakness on the left side with contracture. The patient is medically stable for discharge today. Job ID: [id number]
[2019-04-10 11:45] VITALS: BP 105/61; TEMP 98.5
--- NOTE | 2019-04-10 11:46 | PDOC.HOSPP ---
- Subjective Encounter Date: 04/10/19 Encounter Time: 11:00 Subjective: Patient seen and examined. No new complaints. No overnight events - Objective Vital Signs & Weight: Vital Signs (12 hours) Temp Pulse Resp BP Pulse Ox 04/10/19 11:44 98.5 F 78 14 105/61 98 04/10/19 08:45 99 04/10/19 08:14 71 18 100 04/10/19 07:43 98.2 F 81 14 147/80 H 99 04/10/19 04:00 97.9 F 83 12 145/74 H 95 04/10/19 01:11 16 04/10/19 01:09 97.7 F 82 20 141/79 H 98 Weight Weight 171 lb 8 oz Most Recent Monitor Data Heart Rate from ECG 82 NIBP 166/75 NIBP BP-Mean 105 Respiration from ECG 26 SpO2 99 I&O: 04/09/19 04/10/19 04/11/19 06:59 06:59 06:59 Intake Total 2583 1642 Output Total 850 1000 Balance 1733 642 Result Diagrams: 04/07/19 07:07 04/06/19 04:46 EKG Reviewed by me: Yes Hospitalist ROS - Review of Systems ENT: denies: ear pain, ear discharge, nose pain, nose discharge, nose congestion , mouth pain, mouth swelling, throat pain, throat swelling, other Respiratory: denies: cough, dry, shortness of breath, hemoptysis, SOB with excertion, pleuritic pain, sputum, wheezing, other Cardiovascular: denies: chest pain, palpitations, orthopnea, paroxysmal noc. dyspnea, edema, light headedness, other Gastrointestinal: denies: nausea, vomiting, abdominal pain, diarrhea, constipation, melena, hematochezia, other Genitourinary: denies: dysuria, frequency, incontinence, hematuria, retention, other Musculoskeletal: denies: neck pain, shoulder pain, arm pain, back pain, hand pain, leg pain, foot pain, other - Medication Medications: Active Medications Generic Name Dose Route Start Last Admin Trade Name Freq PRN Reason Stop Dose Admin Hydrocodone Bitart/Acetaminophen 1 tab 04/08/19 10:17 04/09/19 11:46 [place] 5/325 PO 1 tab Q4H PRN Administration Mild Pain (1-3) Albuterol/Ipratropium 3 ml 04/08/19 13:00 04/10/19 08:14 Duoneb NEB 3 ml [id number] RAMYA Administration Alprazolam 2 mg 04/05/19 17:09 04/10/19 08:47 Xanax PO 2 mg QIDPRN PRN Administration Anxiety Amitriptyline HCl 75 mg 04/07/19 09:00 04/10/19 08:47 Elavil PO 75 mg DAILY RAMYA Administration Aspirin 81 mg 04/09/19 09:00 04/10/19 08:47 Aspirin Chewable PO 81 mg QAM RAMYA Administration Atorvastatin Calcium 40 mg 04/06/19 21:00 04/09/19 20:21 Lipitor PO 40 mg HS RAMYA Administration Fentanyl 25 mcg 04/08/19 10:17 04/10/19 00:00 Sublimaze SLOW IVP 25 mcg Q4H PRN Administration Moderate Pain (4-6) Sodium Chloride 1,000 mls @ 100 mls/hr 04/08/19 10:17 04/10/19 00:49 Normal Saline 0.9% IV Not Given .Q10H RAMYA Morphine Sulfate 2 mg 04/08/19 15:59 04/10/19 05:20 Morphine SLOW IVP 2 mg Q4H PRN Administration Moderate Breakthrough Pain Morphine Sulfate 4 mg 04/08/19 16:00 04/08/19 17:34 Morphine SLOW IVP 4 mg Q4H PRN Administration Severe Breakthrough Pain Polyethylene Glycol 17 gm 04/10/19 09:00 04/10/19 08:47 Miralax PO 17 gm BID RAMYA Administration Throat Lozenges 1 paula 04/06/19 07:28 04/09/19 17:35 Cepastat Lozenges PO 1 paula Q2H PRN Administration Sore Throat - Exam General Appearance: NAD, awake alert Eye: PERRL, anicteric sclera ENT: normocephalic atraumatic, no oropharyngeal lesions Neck: supple, symmetric, no JVD Heart: RRR, no murmur, no gallops Respiratory: CTAB, no wheezes, no rales Gastrointestinal: soft, non-tender, non-distended Extremities: no cyanosis, no clubbing Skin: normal turgor, no lesions Musculoskeletal: normal tone, normal strength Psychiatric: normal affect, normal behavior Hosp A/P (1) Encephalopathy acute Code(s): G93.40 - ENCEPHALOPATHY, UNSPECIFIED Status: Resolved (2) CVA (cerebral vascular accident) Code(s): I63.9 - CEREBRAL INFARCTION, UNSPECIFIED Status: Acute (3) Thrombocytopenia Code(s): D69.6 - THROMBOCYTOPENIA, UNSPECIFIED Status: Acute (4) H/O: CVA (cerebrovascular accident) Code(s): Z86.73 - PRSNL HX OF TIA (TIA), AND CEREB INFRC W/O RESID DEFICITS Status: Acute (5) Hypertension Code(s): I10 - ESSENTIAL (PRIMARY) HYPERTENSION Status: Chronic Qualifiers: Hypertension type: essential hypertension Qualified Code(s): I10 - Essential (primary) hypertension (6) Dyslipidemia Code(s): E78.5 - HYPERLIPIDEMIA, UNSPECIFIED Status: Chronic (7) Carotid stenosis Code(s): I65.29 - OCCLUSION AND STENOSIS OF UNSPECIFIED CAROTID ARTERY Status : Chronic (8) Hand pain, left Code(s): M79.642 - PAIN IN LEFT HAND Status: Acute - Plan old records reviewed/req, continue antibiotics 04/06/19- dc lovenox, sent HIT antibody, stroke team, home medication reconciled , add lipitor, aspirin, change flexeril as needed only, reduce elavil 75 mg daily, discussed with CV surgery 04/07/19; pt agreed with CEA, will notify CV surgery, platelet count yesterday seems like false result, today normal 04/08/19- today plan for CEA, after surgery pt will be monitored in CCU, medication reviewed and continue to provide symptomatic treatment 04/09/19- pt has left hand pain and swelling, xray showed fracture, will consult hand surgeon, medication reviewed and continue to provide symptomatic treatment, possible dc soon 04/10/19- medication reviewed and continue to provide symptomatic treatment, see discharge indu
--- NOTE | 2019-04-12 13:12 | EKG ---
Test Reason : STAT Blood Pressure : / mmHG Vent. Rate : 080 BPM Atrial Rate : 080 BPM P-R Int : 176 ms QRS Dur : 096 ms QT Int : 396 ms P-R-T Axes : 082 078 054 degrees QTc Int : 456 ms Normal sinus rhythm Non-specific intra-ventricular conduction delay Abnormal ECG Confirmed by PANCHITO GUERRERO ([id number]) on 04/12/2019 1:12:27 PM Referred By: BEN Confirmed By:PANCHITO GUERRERO
== END 2019-04-10 18:10 | disposition home or self-care (01) | DRG 24 ==
LOC: ERS 10:50 → 2SE 15:15 → CCU 04-08 10:51 → 2SE 04-09 17:17
PROVIDERS: ADMIT Internal Medicine; ATTEND Internal Medicine
PROC: 03CL3ZZ Extirpation of Matter from Left Internal Carotid Artery, Percutaneous Approach (ICD-10-PCS; principal; 2019-04-08)
PROC: 03UL3KZ Supplement Left Internal Carotid Artery with Nonautologous Tissue Substitute, Percutaneous Approach (ICD-10-PCS; 2019-04-08)
PROC: 2W3FX1Z Immobilization of Left Hand using Splint (ICD-10-PCS; 2019-04-10)
DX: I63.9 Cerebral infarction, unspecified (principal); G81.94 Hemiplegia, unspecified affecting left nondominant side; G93.49 Other encephalopathy; S92.322A Displaced fracture of second metatarsal bone, left foot, initial encounter for closed fracture; S92.332A Displaced fracture of third metatarsal bone, left foot, initial encounter for closed fracture; E78.5 Hyperlipidemia, unspecified; I65.02 Occlusion and stenosis of left vertebral artery; G40.909 Epilepsy, unspecified, not intractable, without status epilepticus; R47.1 Dysarthria and anarthria; F17.210 Nicotine dependence, cigarettes, uncomplicated; D69.6 Thrombocytopenia, unspecified; I65.22 Occlusion and stenosis of left carotid artery; Z88.0 Allergy status to penicillin; Z88.2 Allergy status to sulfonamides; Z88.8 Allergy status to other drugs, medicaments and biological substances; Z90.710 Acquired absence of both cervix and uterus
CPT/HCPCS: 36415; 36416; 70450; 70496; 70498; 70551; 71045; 80048; 80053; 80061; 81003; 82550; 84146; 84484; 85025; 85610; 85730; 93005; 93010; 93306; 93880; 94640; 99292; J0360; J0690; J1100; J1642; J1644; J1956; J2001; J2270; J2310; J2370; J2405; J2550; J2704; J2720; J3010; J3490; J7620; S0020

== ENCOUNTER 2019-04-13 19:01 | Observation (INO) | payer OTHER ==
--- NOTE | 2019-04-13 19:20 | CT ---
Head CT without contrast 04/13/2019: COMPARISON: 04/05/2019 HISTORY: Stroke alert, slurred speech and weakness TECHNIQUE: Axial CT imaging at 5 mm intervals from vertex through skull base without contrast FINDINGS: There is evidence of prior large right MCA infarction, unchanged when compared to the prior study. No intracranial hemorrhage, midline shift, mass effect, or ventricular enlargement. The imaged paranasal sinuses and mastoid air cells are well-aerated. No displaced calvarial fracture. No interval change when compared to the prior study performed 8 days prior IMPRESSION: Stable head CT-no intracranial hemorrhage.
[2019-04-13 19:26] LABS: #Basophils 0.1 thou/uL (0.0-0.2); #Eosinphils 0.2 thou/uL (0.0-0.7); #Lymphocytes 3.2 thou/uL (1.20-3.40); #Monocytes 0.4 thou/uL (0.11-0.59); #Neutrophils 3.6 thou/uL (1.40-6.50); %Basophils 1.4 % (0.0-1.0); %Eosinophils 2.3 % (0.0-10.0); %Lymphocytes 43.4 % (21.0-51.0); %Monocytes 4.9 % (0.0-10.0); Hemoglobin 13.1 g/dL (12.0-16.0); Mean Corpuscular HGB CONC 34.3 g/dL (32.0-36.0); Mean Corpuscular Hemoglobin 32.3 pg (27.0-31.0); Mean Corpuscular Volume 94.2 fL (78.0-98.0); Mean Platelet Volume 6.7 fL (7.4-10.4); Platelet Count 240 thou/uL (130-400); RBC Distribution Width 11.9 % (11.5-14.5); Red Blood Cell (RBC) Count 4.05 mill/uL (4.20-5.40); White Blood Cell (WBC) Count 7.4 thou/uL (4.8-10.8)
[2019-04-13 19:31] LABS: INR-International Normal Ratio 0.9; PTT 28.2 SEC (22.9-36.1); Prothrombin Time 12.6 SEC (12.0-14.7)
[2019-04-13 19:37] LABS: ALT (SGPT) 7 U/L (8-55); AST (SGOT) 10 U/L (5-34); Albumin 4.2 g/dL (3.5-5.0); Alkaline Phosphatase 110 U/L (40-110); Anion Gap 14 mmol/L (10-20); BUN (Urea Nitrogen) 14 mg/dL (9.8-20.1); Bilirubin, Total 0.2 mg/dL (0.2-1.2); CK (CPK) 50 U/L (29-168); Calc. Creatinine Clearance 0 mL/min (70-130); Carbon Dioxide 27 mmol/L (22-29); Chloride 102 mmol/L (98-107); Estimated GFR-MDRD 71; Glucose 143 mg/dL (70-105); Potassium 3.8 mmol/L (3.5-5.1); Protein, Total 7.2 g/dL (6.0-8.3); Sodium 139 mmol/L (136-145)
[2019-04-13] MEDS ORDERED: Aspirin 300 MG Suppository ONE (20:25)
--- NOTE | 2019-04-13 20:45 | PDOC.HHP ---
Hospitalist HPI - History of Present Illness AMS History of Present Illness: Ms. Mcneil is a 53 y/o lady with PMH of left sided hemiparesis after stroke many years ago, recent CEA done last week, HTN, HLD who presents to the ED for altered mental status once again. History obtained from sorting machine attendant. Apparently, she has been living in a trailer home since discharge. Valver says that at baseline she has several left sided deficits noted after a stroke many years ago. After last week, she presented with slurred speech in the emergency room and was admitted. Echo, CTA, and MRI were ordered. The MRI was unremarkable for a new acute stroke process. CTA revealed severe ICA stenosis and right vertebral artery occlusion, but there was no acute process identified. She underwent CEA on the left side last week in the hospital. Since then, sorting machine attendant states she has been back to her baseline, but today again noted that she had fallen and was altered and slurring her speech. States that she also takes Xanax at home but is unclear if she is taking medication correctly. Otherwise no other symptoms noted. Hospitalist ROS - Review of Systems ROS unobtainable: due to mental status Hospitalist History - Past Medical History Cardiac: reports: HTN Pulmonary: reports: CVA/TIA/stroke Gastrointestinal: reports: no pertinent history Heme/Onc: reports: no pertinent history Hepatobiliary: reports: no pertinent history Psych: reports: no pertinent history Musculoskeletal: reports: no pertinent history Rheumatologic: reports: no pertinent history Infectious Disease: reports: no pertinent history ENT: reports: no pertinent history Renal/: reports: no pertinent history Endocrine: reports: no pertinent history Dermatology: reports: no pertinent history - Past Surgical History Past Surgical History: reports: no pertinent history - Family History Family History: reports: no pertinent history - Social History Alcohol: reports: None Drugs: reports: none Living Situation: Other (in [place]) - Exam General Appearance: NAD, awake alert Eye: PERRL, anicteric sclera ENT: normocephalic atraumatic, no oropharyngeal lesions, moist mucosa Neck: supple, symmetric, no JVD, no thyromegaly, no lymphadenopathy, no carotid bruit Heart: RRR, no murmur, no gallops, no rubs, normal peripheral pulses Respiratory: CTAB, no wheezes, no rales, no ronchi, normal chest expansion, no tachypnea, normal percussion Gastrointestinal: soft, non-tender, non-distended, normal bowel sounds, no palpable masses, no hepatomegaly, no splenomegaly, no bruit Extremities: no cyanosis, no clubbing, no edema Skin: normal turgor, no lesions, no rashes Neurological: hemiplegia, speech deficit Neurological - other findings: left sided hemiplegia, speech deficit, alert and oriented to person and sen Musculoskeletal - other findings: left sided hemiparesis Psychiatric: flat affect, lethargic Hospitalist Results - Labs Result Diagrams: 04/13/19 19:14 04/13/19 19:14 Lab results: WBC 7.4 thou/uL (4.8-10.8) 04/13/19 19:14 Hgb 13.1 g/dL (12.0-16.0) 04/13/19 19:14 Hct 38.1 % (36.0-47.0) 04/13/19 19:14 MCV 94.2 fL (78.0-98.0) 04/13/19 19:14 Plt Count 240 thou/uL (130-400) 04/13/19 19:14 Neutrophils % 48.0 % (42.0-75.0) 04/13/19 19:14 Sodium 139 mmol/L (136-145) 04/13/19 19:14 Potassium 3.8 mmol/L (3.5-5.1) 04/13/19 19:14 Chloride 102 mmol/L (98-107) 04/13/19 19:14 Carbon Dioxide 27 mmol/L (22-29) 04/13/19 19:14 BUN 14 mg/dL (9.8-20.1) 04/13/19 19:14 Creatinine 0.85 mg/dL (0.6-1.1) 04/13/19 19:14 Glucose 143 mg/dL (70-105) H 04/13/19 19:14 Calcium 10.0 mg/dL (7.8-10.44) 04/13/19 19:14 Total Bilirubin 0.2 mg/dL (0.2-1.2) 04/13/19 19:14 AST 10 U/L (5-34) 04/13/19 19:14 ALT 7 U/L (8-55) L 04/13/19 19:14 Alkaline Phosphatase 110 U/L (40-110) 04/13/19 19:14 Creatine Kinase 50 U/L (29-168) 04/13/19 19:14 Troponin I 0.016 ng/mL (< 0.028) 04/13/19 19:14 Serum Total Protein 7.2 g/dL (6.0-8.3) 04/13/19 19:14 Albumin 4.2 g/dL (3.5-5.0) 04/13/19 19:14 - Radiology Interpretation CT scan - head Status: report reviewed by [place] Hospitalist H&P A/P - Problem (1) Acute encephalopathy Code(s): G93.40 - ENCEPHALOPATHY, UNSPECIFIED Status: Acute (2) Carotid stenosis Code(s): I65.29 - OCCLUSION AND STENOSIS OF UNSPECIFIED CAROTID ARTERY Status : Chronic Assessment and Plan: s/pt recent CEA on left side (3) H/O: CVA (cerebrovascular accident) Code(s): Z86.73 - PRSNL HX OF TIA (TIA), AND CEREB INFRC W/O RESID DEFICITS Status: Acute (4) Dyslipidemia Code(s): E78.5 - HYPERLIPIDEMIA, UNSPECIFIED Status: Chronic (5) Hypertension Code(s): I10 - ESSENTIAL (PRIMARY) HYPERTENSION Status: Chronic Qualifiers: Hypertension type: essential hypertension Qualified Code(s): I10 - Essential (primary) hypertension - Plan Plan: Admit to tele/stroke unit. Neurocheck q4hr Aspirin and crestor MRI brain w/o contrast CTA, echo reviewed from last week, no evidence of acute stroke. Evidence of occlusions and ICA stenosis. Consult her neurologist who saw her last week Consult placed to her CT surgeon who performed CEA last week Reconcile medication in the AM DVT Prophlyaxis: SCDs Code status: Full Disposition: Admit to stroke tele. Work up of AMS/possible recurrence of old stroke symptoms vs. new onset CVA
--- NOTE | 2019-04-13 21:50 | MRI ---
Brain MRI without contrast: 04/13/2019 COMPARISON: 04/05/2019 HISTORY: Stroke symptoms TECHNIQUE: Multiplanar multisequence MR imaging of the brain is obtained without contrast FINDINGS: The diffusion weighted imaging demonstrates no evidence for acute infarction. There is no e vidence for acute intracranial hemorrhage. There is extensive encephalomalacia within the MCA territory on the right consistent with stable chronic extensive right MCA infarction. There is bloomi ng artifact along the medial aspect of this old infarction on the basis of prior hemorrhage. Arterial flow voids at the axial level of the skull base appear grossly unremarkable on the T2-weight ed imaging. There are a few opacified mastoid air cells bilaterally. IMPRESSION: Evidence of old large right MCA infarction. No evidence for acute infarction.
[2019-04-14] MEDS ORDERED: Ketorolac Tromethamine 30 MG/ML VIAL IVP SCH (04:45)
[2019-04-14 06:10] LABS: #Basophils 0.1 thou/uL (0.0-0.2); #Eosinphils 0.2 thou/uL (0.0-0.7); #Lymphocytes 2.8 thou/uL (1.20-3.40); #Monocytes 0.4 thou/uL (0.11-0.59); #Neutrophils 3.1 thou/uL (1.40-6.50); %Eosinophils 3.5 % (0.0-10.0); %Lymphocytes 42.5 % (21.0-51.0); %Monocytes 6.7 % (0.0-10.0); %Neutrophils 46.3 % (42.0-75.0); Hemoglobin 13.2 g/dL (12.0-16.0); Mean Corpuscular Hemoglobin 32.5 pg (27.0-31.0); Mean Corpuscular Volume 95.5 fL (78.0-98.0); Mean Platelet Volume 6.8 fL (7.4-10.4); Platelet Count 220 thou/uL (130-400); RBC Distribution Width 11.9 % (11.5-14.5); Red Blood Cell (RBC) Count 4.08 mill/uL (4.20-5.40); White Blood Cell (WBC) Count 6.6 thou/uL (4.8-10.8)
[2019-04-14 06:30] LABS: Anion Gap 14 mmol/L (10-20); BUN (Urea Nitrogen) 15 mg/dL (9.8-20.1); Calc. Creatinine Clearance 109 mL/min (70-130); Calcium 9.3 mg/dL (7.8-10.44); Carbon Dioxide 24 mmol/L (22-29); Cardiac Risk 5.7 (Less than 4.5); Chloride 104 mmol/L (98-107); Cholesterol 198 mg/dl (< 200 Desired); Estimated GFR-MDRD 84; Glucose 116 mg/dL (70-105); HDL Cholesterol 35 mg/dL (>60 Neg Risk); LDL Cholesterol, Calculated 124 mg/dL; Potassium 3.7 mmol/L (3.5-5.1); Sodium 138 mmol/L (136-145); Triglycerides 193 mg/dL (Less than 150)
[2019-04-14] MEDS: Aspirin 325 mg Enteric Coated Tablet PO SCH (10:30)
--- NOTE | 2019-04-14 11:32 | CON ---
DATE OF TELEMEDICINE CONSULTATION: 04-14-19 CHIEF COMPLAINT: Possible stroke. HISTORY OF PRESENT ILLNESS: The patient is a 53-year-old lady, who was brought to the emergency room after having some dysarthria. The patient normally has dysarthria with slurred fluctuation in her speech. She has history of left- sided hemiparesis after a stroke many years ago. Recently, she had a carotid endarterectomy. She is also hypertensive, hyperlipidemia, and has been living in a trailer home. She fell down and has had pain in the ribs since this admission. The patient is reporting she is somewhat angry with the caregiver for some reason and this needs to be explored further by criminal justice social worker. PREVIOUS MEDICAL HISTORY: History of stroke and hypertension. PREVIOUS SURGICAL HISTORY: None. FAMILY HISTORY: The patient has 11 siblings. She is not sure of their health problems. Her mother in her 70s. She had a small myocardial infarction and was walking out of her eldest daughter's house and fell on ice, and they left her to per the patient and she of hypothermia. Her father in his 70s. He had aortic aneurysm. SOCIAL HISTORY: She smokes half pack a day since age 17. She does not drink alcohol. She lives with her and son. She also uses chewing gum regularly. REVIEW OF SYSTEMS: PULMONARY: Negative for shortness of breath or cough. GASTROINTESTINAL: Negative for nausea, vomiting, or diarrhea. GENERAL: Positive for rib pain on the left side. DERMATOLOGIC: Negative for any skin lesions. NEUROLOGIC: Positive for left-sided weakness and dysarthria. OPHTHALMOLOGIC: Negative for any vision problems. HEMATOLOGIC: Negative for bleeding diathesis. LABORATORY DATA: Current labs: White count 6.6, hemoglobin 13.2, hematocrit 39 , platelet count 220. PT 12.6, INR 2.9, PTT 28.2. Chemistry; sodium 138, potassium 3.7, chloride 104, bicarb 24, BUN 15, creatinine 0.73, glucose 116, calcium 9.3. Lipid profile noted that she had mild hypertriglyceridemia. Her MRI was completed and there is no new acute stroke. She does have prior old large right MCA infarction. PHYSICAL EXAMINATION: VITAL SIGNS: Temperature 97.7, pulse 66, respiratory rate 18, blood pressure 135/69. GENERAL APPEARANCE: Well-built, well-nourished lady. She is complaining of pain in the left rib cage area. CHEST: Clear vesicular breathing. CARDIOVASCULAR: S1 and S2 heard. No murmurs. ABDOMEN: Soft. NEUROLOGIC: Higher intellectual functions. Normal orientation to time, place, and person. Appropriate conversation. Speech, mild dysarthria present. Cranial nerves 2 through 12, normal extraocular movements. Tongue is midline. No atrophy noted. Normal sensation of face bilaterally. Motor examination; bulk normal, tone normal, strength 5/5 on the right side. On the left side, left upper extremity strength was 2/5 and left lower extremity strength was 4+/5. Muscle groups tested are deltoid, biceps, triceps, wrist extension and flexion, finger extension and flexion, iliopsoas, hamstrings, quadriceps, ankle dorsiflexion and plantar flexion bilaterally. Deep tendon reflexes are 1+ throughout. Sensory, normal to touch bilaterally. Cerebellar, normal itnzly-bj-[id number] and tbul-mc-veiv was difficult to perform. IMPRESSION AND PLAN: The patient is a 53-year-old lady with an old large right middle cerebral artery infarct. She came in with dysarthria and alteration in mental status. The patient states she fell down and hurt her ribs, and there was a note of altered mental status yesterday from the ER and the caregiver bringing her in. The patient is somewhat angry with her caregiver and was complaining about that. She needs some criminal justice social worker help and assistance in sorting out her personal affairs. At this time, we can continue her plan for aspirin and statin for stroke prophylaxis. Job ID: [id number] MTDD
--- NOTE | 2019-04-14 12:10 | RAD ---
LEFT RIBS GREATER THAN OR EQUAL TO 2 VIEWS STANDARD: HISTORY: Fall. COMPARISON: None. FINDINGS: Mild atelectasis of the left lung base. No pneumothorax. Nondisplaced fracture left lateral 6th rib and possibly the 7th rib. IMPRESSION: Nondisplaced left anterior lateral 6th and 7th rib fractures. POS: CET
--- NOTE | 2019-04-14 13:26 | PDOC.HOSPP ---
- Subjective Encounter Date: 04/14/19 Encounter Time: 12:55 Subjective: +left sided chest pain after fall.. - Objective Vital Signs & Weight: Vital Signs (12 hours) Temp Pulse Resp BP BP BP Pulse Ox 04/14/19 11:30 147/81 H 04/14/19 11:20 97.9 F 73 16 147/81 H 100 04/14/19 07:37 97.7 F 66 18 135/69 99 04/14/19 03:52 98 F 60 14 116/63 98 Weight Weight 167 lb 4.8 oz Result Diagrams: 04/14/19 05:24 04/14/19 05:24 Hospitalist ROS - Medication Medications: Active Medications Generic Name Dose Route Start Last Admin Trade Name Freq PRN Reason Stop Dose Admin Aspirin 325 mg 04/14/19 09:00 04/14/19 10:30 Ecotrin PO 325 mg DAILY RAMYA Administration Atorvastatin Calcium 40 mg 04/13/19 21:00 04/14/19 00:00 Lipitor PO Not Given HS RAMYA - Exam General Appearance: NAD Neck: no JVD Heart: RRR Respiratory: CTAB Respiratory - other findings: Chest tender to palpation...+pleuretic CP. Gastrointestinal: soft Extremities: no edema Neurological: hemiplegia (, left sided, old.) Hosp A/P (1) Acute encephalopathy Code(s): G93.40 - ENCEPHALOPATHY, UNSPECIFIED Status: Acute Plan: Suspect acute delirium associated with bemzodiazepine.. (2) H/O: CVA (cerebrovascular accident) Code(s): Z86.73 - PRSNL HX OF TIA (TIA), AND CEREB INFRC W/O RESID DEFICITS Status: Acute (3) Carotid stenosis Code(s): I65.29 - OCCLUSION AND STENOSIS OF UNSPECIFIED CAROTID ARTERY Status : Chronic Plan: s/p Carotid endarterectomy last week.. (4) Dyslipidemia Code(s): E78.5 - HYPERLIPIDEMIA, UNSPECIFIED Status: Chronic (5) Hypertension Code(s): I10 - ESSENTIAL (PRIMARY) HYPERTENSION Status: Chronic Qualifiers: Hypertension type: essential hypertension Qualified Code(s): I10 - Essential (primary) hypertension (6) Rib fractures Code(s): S22.39XA - FRACTURE OF ONE RIB, UNSP SIDE, INIT FOR CLOS FX Status: Acute Plan: Analgesics prn.. - Plan Continue ASA, Statin.. Analgesics prn..
[2019-04-14] MEDS: Ketorolac Tromethamine 30 MG/ML VIAL IVP PRN ×2 (13:35→20:59)
[2019-04-14] MEDS: Atorvastatin Calcium 40 MG TAB PO SCH ×2 (21:01)
[2019-04-14] MEDS: Melatonin 3 MG TAB PO PRN (23:20)
[2019-04-15] MEDS: Ketorolac Tromethamine 30 MG/ML VIAL IVP PRN ×3 (06:20→23:02)
[2019-04-15] MEDS: Labetalol HCl 100 MG/20 ML VIAL SLOW IVP PRN ×2 (07:58→11:12)
[2019-04-15] MEDS: Aspirin 325 mg Enteric Coated Tablet PO SCH (07:58)
--- NOTE | 2019-04-15 11:57 | PDOC.HOSPP ---
- Subjective Encounter Date: 04/15/19 Encounter Time: 10:40 Subjective: Some chest pain, worse with deep inspiration.. - Objective Vital Signs & Weight: Vital Signs (12 hours) Temp Pulse Resp BP BP BP Pulse Ox 04/15/19 11:45 98.8 F 63 14 156/77 H 96 04/15/19 11:12 84 208/100 H 04/15/19 09:45 178/84 H 04/15/19 07:58 80 235/96 H 04/15/19 07:52 97.9 F 80 20 235/96 H 98 04/15/19 04:00 97.8 F 60 16 142/72 H 97 Weight Weight 167 lb 4.8 oz I&O: 04/14/19 04/15/19 04/16/19 06:59 06:59 06:59 Intake Total 840 304 Balance 840 304 Result Diagrams: 04/14/19 05:24 04/14/19 05:24 Hospitalist ROS - Medication Medications: Active Medications Generic Name Dose Route Start Last Admin Trade Name Freq PRN Reason Stop Dose Admin Aspirin 325 mg 04/14/19 09:00 04/15/19 07:58 Ecotrin PO 325 mg DAILY RAMYA Administration Atorvastatin Calcium 40 mg 04/13/19 21:00 04/14/19 21:01 Lipitor PO 40 mg HS RAMYA Administration Ketorolac Tromethamine 30 mg 04/14/19 04:32 04/15/19 06:20 Toradol IVP 04/19/19 04:33 30 mg Q6H PRN Administration Pain Labetalol HCl 20 mg 04/13/19 20:36 04/15/19 11:12 Normodyne SLOW IVP 20 mg Q1H PRN Administration BP > 220/110 Melatonin 6 mg 04/14/19 22:55 04/14/19 23:20 Melatonin PO 6 mg HS PRN Administration Insomnia - Exam Eye: anicteric sclera Neck: no JVD Heart: RRR Respiratory: CTAB Gastrointestinal: soft Extremities: no edema Neurological: hemiplegia (Left..) Psychiatric: normal affect, A&O x 3 Hosp A/P (1) Acute encephalopathy Code(s): G93.40 - ENCEPHALOPATHY, UNSPECIFIED Status: Acute Plan: Was most likely related to medications.. (2) H/O: CVA (cerebrovascular accident) Code(s): Z86.73 - PRSNL HX OF TIA (TIA), AND CEREB INFRC W/O RESID DEFICITS Status: Acute (3) Carotid stenosis Code(s): I65.29 - OCCLUSION AND STENOSIS OF UNSPECIFIED CAROTID ARTERY Status : Chronic (4) Dyslipidemia Code(s): E78.5 - HYPERLIPIDEMIA, UNSPECIFIED Status: Chronic (5) Hypertension Code(s): I10 - ESSENTIAL (PRIMARY) HYPERTENSION Status: Chronic Qualifiers: Hypertension type: essential hypertension Qualified Code(s): I10 - Essential (primary) hypertension Plan: BP is elevated most likely due to pain.. (6) Rib fractures Code(s): S22.39XA - FRACTURE OF ONE RIB, UNSP SIDE, INIT FOR CLOS FX Status: Acute - Plan Continue ASA, Statin.. Analgesics prn.. Elevated BP most likely due to pain. Home tomorrow.
[2019-04-15] MEDS ORDERED: Amlodipine 10 MG TAB PO SCH (12:15)
[2019-04-15] MEDS ORDERED: Aspirin 325 MG TAB PO SCH (12:15)
[2019-04-15] MEDS ORDERED: Atorvastatin Calcium 40 MG TAB PO SCH (21:00)
[2019-04-15] MEDS: Atorvastatin Calcium 40 MG TAB PO SCH (21:09)
[2019-04-15] MEDS: Melatonin 3 MG TAB PO PRN (21:12)
[2019-04-15] MEDS ORDERED: hydrALAZINE 20 MG/ML VIAL SLOW IVP PRN (23:25)
[2019-04-16] MEDS: Ketorolac Tromethamine 30 MG/ML VIAL IVP PRN ×2 (05:03→14:00)
[2019-04-16 07:29] VITALS: TEMP 98.1
[2019-04-16] MEDS ORDERED: Amlodipine 10 MG TAB PO SCH (09:00)
[2019-04-16] MEDS ORDERED: Aspirin 325 MG TAB PO SCH (09:00)
[2019-04-16 11:39] VITALS: BP 126/73
--- NOTE | 2019-04-17 23:19 | DIS ---
DATE OF ADMISSION: 04/13/2019 DATE OF DISCHARGE: 04/16/2019 DISCHARGE DIAGNOSES: 1. Rib fractures. 2. Acute encephalopathy, possibly medication related. 3. History of recent cerebrovascular accident. 4. Carotid stenosis. 5. Dyslipidemia. 6. Hypertension. HISTORY OF PRESENT ILLNESS: This patient is a 53-year-old female, who had just previously been admitted on 03/2019 with new CVA and right MCA distribution with some left-sided weakness. The patient had carotid endarterectomy performed. She subsequently was discharged home. However, she returned to the hospital through the emergency department. On the day of admission, the patient had fallen and appeared to be slurring her speech somewhat and she was brought back to the emergency department. She was felt to have acute encephalopathy of unclear etiology, possibly related to her usual home medications, which included benzodiazepines. She had a CT and MRI of the brain, neither of which showed anything new, but only old stroke with nondisplaced left anterior lateral 6th and 7th rib fractures. The patient was seen in consultation by Neurology. His plan was to keep her on aspirin and statin. She continued to have pain management and ultimately was seen by lead case manager in order to try to help the patient with some resources, but the patient was eager for discharge home and felt stable to do so. PHYSICAL EXAMINATION: VITAL SIGNS: On the day of discharge, temperature is 98.1, pulse 84, respirations 16, O2 saturation 98% on room air, BP was 126/73. GENERAL: She was awake and alert, pleasant, cooperative. HEART: Regular rate and rhythm. LUNGS: Clear bilaterally. ABDOMEN: Benign. EXTREMITIES: No cyanosis, clubbing, or edema. NEUROLOGIC: She had some very mild persistent left-sided weakness, but nothing new. DISPOSITION: The patient is discharged to home. ACTIVITY: As tolerated. DIET: She will be on a heart healthy diet. She will have home physical therapy, where she will have outpatient physical therapy orders for a walker. She believes she has access to one. DISCHARGE MEDICATIONS: She will be on: 1. Atorvastatin 40 mg at bedtime. 2. Hydrochlorothiazide 25 mg daily. She will continue her other usual home medications includin. Carafate. 2. Soma. 3. Alprazolam p.r.n. 4. Amlodipine 10 mg daily. 5. Aspirin 325 daily. 6. Amitriptyline 75 mg daily. 7. Oxycodone p.r.n. She is to follow up with her primary care provider and she can return to the hospital anytime she feels any need to do so in the interim. TIME SPENT: Total time in discharge planning activities was 35 minutes. Job ID: [id number]
== END 2019-04-16 15:55 | disposition home or self-care (01) ==
LOC: ERS 19:01 → 2SE 23:07
PROVIDERS: ADMIT Internal Medicine; ATTEND Internal Medicine
DX: G93.40 Encephalopathy, unspecified (principal); S22.42XA Multiple fractures of ribs, left side, initial encounter for closed fracture; I69.354 Hemiplegia and hemiparesis following cerebral infarction affecting left non-dominant side; I65.29 Occlusion and stenosis of unspecified carotid artery; I65.01 Occlusion and stenosis of right vertebral artery; E78.5 Hyperlipidemia, unspecified; I10 Essential (primary) hypertension; F17.210 Nicotine dependence, cigarettes, uncomplicated; Z79.82 Long term (current) use of aspirin; Z79.899 Other long term (current) drug therapy; Z88.0 Allergy status to penicillin; Z88.2 Allergy status to sulfonamides; Z88.8 Allergy status to other drugs, medicaments and biological substances; W19.XXXA Unspecified fall, initial encounter
CPT/HCPCS: 36415; 70450; 70551; 80048; 80053; 80061; 82550; 84484; 85025; 85610; 85730; 93005; 96374; 96376; G0378; J1885